=== PATIENT | female | born 1970 | race Caucasian/White ===

== ENCOUNTER → 2017-05-05 | Outpatient (CLI) | payer OTHER ==
[~2017-05-05] MED LIST: FROV2.5T5 PO; HYDR25TA4 PO; LEVO88TA22 PO; MULT-506 PO; SIMV20TA2 PO
[2017-05-05 10:00] LABS: BASO % 0.3 %; BASO ABS # 0.02 K/uL (0-0.2); COMPLETE YES; EOS % 1.9 %; HEMATOCRIT 39.9 % (37-47); IG% 0.3 %; LYMPH % 33.9 %; LYMPH ABS # 1.97 K/uL (1.2-3.4); MEAN CELL VOLUME 91.5 fL (80-100); MEAN CORPUSCULAR HEMOGLOBIN 32.8 pg (25-34); MEAN CORPUSCULAR HGB CONC 35.8 g/dl (32-36); MONO % 5.7 %; NEUT % 57.9 %; PLATELET COUNT 268 K/uL (130-400); RED BLOOD COUNT 4.36 M/uL (4.2-5.4); WHITE BLOOD COUNT 5.81 K/uL (4.8-10.8)
[2017-05-05 10:30] LABS: ALT/SGPT 34 U/L (12-78); BLOOD UREA NITROGEN 15 mg/dl (7-18); BUN/CREATININE RATIO 18.4 (10-20); CALCIUM 9.2 mg/dl (8.5-10.1); CARBON DIOXIDE 31 mmol/L (21-32); CHLORIDE 102 mmol/L (98-107); CHOLESTEROL 237 mg/dl (0-200); GLUCOSE 93 mg/dl (70-99); POTASSIUM 3.2 mmol/L (3.5-5.1); SODIUM 138 mmol/L (136-145)
[2017-05-05 10:41] LABS: ALKALINE PHOSPHATASE 71 U/L (45-117); AST/SGOT 25 U/L (15-37); CHOLESTEROL/HDL RATIO 4.3; HDL CHOLESTEROL 55 mg/dl; LDL CHOLESTEROL CALCULATED 134 mg/dl; TRIGLYCERIDES 238 mg/dl (0-150); VERY LOW DENSITY LIPOPROT CALC 48 mg/dl
== END | disposition home or self-care (01) ==
LOC: C.LAB 08:51
PROVIDERS: ATTEND Physician Assistant
DX: E03.8 Other specified hypothyroidism (principal); E53.8 Deficiency of other specified B group vitamins; I10 Essential (primary) hypertension; E78.5 Hyperlipidemia, unspecified; E55.9 Vitamin D deficiency, unspecified